=== PATIENT | female | born 1980 | race Caucasian/White ===

== ENCOUNTER 2017-06-20 12:33 | Emergency (ER) | payer MEDICAID ==
[~2017-06-20] VITALS: Ht 165.1 cm; Wt 65.0 kg
[2017-06-20] MEDS ORDERED: BUPR300T49 PO (12:58)
[2017-06-20] MEDS ORDERED: MULT-730 PO (12:58)
[2017-06-20] MEDS ORDERED: SODIUM CHLORIDE FLUSH 10ML SYR IVF ONE (13:00)
[2017-06-20 15:47] VITALS: BP 121/85
== END 2017-06-20 15:50 | disposition home or self-care (01) ==
LOC: ED 15:44
DX: T40.1X1A Poisoning by heroin, accidental (unintentional), initial encounter (principal); F11.20 Opioid dependence, uncomplicated; F17.200 Nicotine dependence, unspecified, uncomplicated; Y92.89 Other specified places as the place of occurrence of the external cause
CPT/HCPCS: 93005; 99283

== ENCOUNTER 2017-09-02 16:33 | Emergency (ER) | payer MEDICAID ==
[~2017-09-02] VITALS: Ht 165.1 cm; Wt 67.6 kg
[~2017-09-02 16:33] MED LIST: BUPR150T73 PO; BUPR300T49 PO; MULT-730 PO
[2017-09-02 16:36] VITALS: BP 114/63
[2017-09-02] MEDS ORDERED: METH5TAB2 PO (17:15)
== END 2017-09-02 18:05 | disposition home or self-care (01) ==
LOC: ED 17:00
DX: L01.01 Non-bullous impetigo (principal); F15.10 Other stimulant abuse, uncomplicated
CPT/HCPCS: 99283

== ENCOUNTER 2019-07-12 13:15 | Emergency (ER) | payer MEDICAID ==
[~2019-07-12] VITALS: Ht 165.1 cm; Wt 70.1 kg
[~2019-07-12 13:15] MED LIST changes: +METH5TAB2 PO
[2019-07-12 13:25] VITALS: BP 124/81
[2019-07-12] MEDS ORDERED: DEXAMETHASONE 4 MG TABLET PO ONE (14:00)
--- NOTE | 2019-07-12 14:32 | NUR ---
Patient/Caregiver given discharge instructions and they have confirmed that they understand the instructions. Patient ambulatory with steady gait.
== END 2019-07-12 14:33 | disposition home or self-care (01) ==
LOC: ED 14:27
DX: J03.90 Acute tonsillitis, unspecified (principal); J04.0 Acute laryngitis; Z87.891 Personal history of nicotine dependence
CPT/HCPCS: 87081; 87880; 99283